=== PATIENT | female | born 1995 ===

== ENCOUNTER 2018-11-09 15:08 | Inpatient (IN) | payer OTHER ==
[~2018-11-09] VITALS: Ht 170.2 cm; Wt 273.0 kg
[2018-11-09] MEDS ORDERED: PRENATAL 19 TA1 EACH PO (16:20)
[2018-11-09] MEDS ORDERED: ASA81 MG PO (16:20)
== END 2018-11-11 12:28 | disposition home or self-care (01) | DRG 819 ==
LOC: LDR 15:08
PROVIDERS: ADMIT Specialist
PROC: 0UVC7ZZ Restriction of Cervix, Via Natural or Artificial Opening (ICD-10-PCS; principal; 2018-11-09)
PROC: 4A0HXFZ Measurement of Products of Conception, Cardiac Rhythm, External Approach (ICD-10-PCS; 2018-11-09)
DX: O34.32 Maternal care for cervical incompetence, second trimester (principal); Z3A.15 15 weeks gestation of pregnancy

== ENCOUNTER 2019-03-16 22:18 | Outpatient (CLI) | payer OTHER ==
[~2019-03-16 22:18] MED LIST: ASA81 MG PO; PRENATAL 19 TA1 EACH PO
== END 2019-03-17 12:49 | disposition home or self-care (01) ==
LOC: OBS/DEL 22:18
DX: O26.853 Spotting complicating pregnancy, third trimester (principal)

== ENCOUNTER 2019-04-06 05:35 | Inpatient (IN) | payer OTHER ==
[~2019-04-06] VITALS: Ht 170.2 cm; Wt 123.4 kg
[2019-04-06] MEDS ORDERED: BRETHINE PO (06:29)
[2019-04-06] MEDS ORDERED: TERBUTALINE SU2.5 MG (08:19)
[2019-04-06] MEDS ORDERED: TERBUTALINE SULF5 MG (08:19)
== END 2019-04-09 14:00 | disposition home or self-care (01) | DRG 788 ==
LOC: LDR 05:35 → OB/GYN 05:35
PROVIDERS: ADMIT Specialist
PROC: 4A1HXCZ Monitoring of Products of Conception, Cardiac Rate, External Approach (ICD-10-PCS; 2019-04-06)
PROC: 10D00Z1 Extraction of Products of Conception, Low, Open Approach (ICD-10-PCS; principal; 2019-04-06 09:15)
DX: O82 Encounter for cesarean delivery without indication (principal); Z3A.37 37 weeks gestation of pregnancy; Z37.0 Single live birth

== ENCOUNTER 2019-05-02 06:15 | Day surgery (SDC) | payer OTHER ==
[~2019-05-02 06:15] MED LIST changes: +BRETHINE PO; +FAM PO; +TERBUTALINE SU2.5 MG; +TERBUTALINE SULF5 MG; +TRAM1TAB98 PO; +[UNRECOGNIZED DRUG - OTHER]
[2019-05-02] MEDS ORDERED: ULTRACET PO (09:57)
[2019-05-02] MEDS ORDERED: NEURONTIN600 M1 PO (09:58)
== END 2019-05-02 14:35 | disposition home or self-care (01) ==
LOC: CIR.AMB 06:15
DX: K80.10 Calculus of gallbladder with chronic cholecystitis without obstruction (principal)